=== PATIENT | male | born 1955 | race African-American/Black ===

== ENCOUNTER 2021-09-20 23:04 | Emergency (ER) | payer SELFPAY ==
[2021-09-21] MEDS ORDERED: METO25TA4 PO (01:30)
[2021-09-21] MEDS ORDERED: AMLO10TA4 PO (01:30)
== END 2021-09-20 23:10 | disposition left against medical advice (07) ==
LOC: ER 23:04
DX: Z02.79 Encounter for issue of other medical certificate (principal); Z53.21 Procedure and treatment not carried out due to patient leaving prior to being seen by health care provider

== ENCOUNTER 2021-09-21 00:59 | Emergency (ER) | payer SELFPAY ==
[~2021-09-21] VITALS: Ht 172.7 cm; Wt 70.0 kg
[2021-09-21 01:08] VITALS: BP 192/103
[2021-09-21] MEDS ORDERED: AMLO10TA4 PO (01:30)
[2021-09-21] MEDS ORDERED: METO25TA4 PO (01:30)
--- NOTE | 2021-09-21 01:30 | PHYS DOC ---
General Adult EDM: Chief Complaint: MEDICATION REFILL HPI: HPI: Patient is a 66 year old male presents requesting medication refill-- norvasc and metoprolol. Patient states has been out of his medication for the last several months. Patient states he has been in [facility] for the last 2 months. He is originally from [place]. He states he is in town for rehab. Patient states he does all types of drugs. Review of Systems: Review of Systems: Constitutional: Denies fever or chills. [] Eyes: Denies change in visual acuity. [] HENT: Denies nasal congestion or sore throat. [] Respiratory: Denies cough or shortness of breath. [] Cardiovascular: Denies chest pain or edema. [] GI: Denies abdominal pain, nausea, vomiting, bloody stools or diarrhea. [] : Denies dysuria. [] Musculoskeletal: Denies back pain or joint pain. [] Integument: Denies rash. [] Neurologic: Denies headache, focal weakness or sensory changes. [] Endocrine: Denies polyuria or polydipsia. [] Lymphatic: Denies swollen glands. [] Psychiatric: Denies depression or anxiety. [] Heart Score: C/O Chest Pain: N/A Risk Factors: Risk Factors: DM, Current or recent (<one month) smoker, HTN, HLP, family history of CAD, obesity. Risk Scores: Score 0 - 3: 2.5% MACE over next 6 weeks - Discharge Home Score 4 - 6: 20.3% MACE over next 6 weeks - Admit for Clinical Observation Score 7 - 10: 72.7% MACE over next 6 weeks - Early Invasive Strategies Physical Exam: PE: Constitutional: Well developed, well nourished, no acute distress, non-toxic appearance. [] HENT: Normocephalic, atraumatic, bilateral external ears normal, oropharynx moist, no oral exudates, nose normal. [] Eyes: PERRLA, EOMI, conjunctiva normal, no discharge. [] Neck: Normal range of motion, no tenderness, supple, no stridor. [] Cardiovascular:Heart rate regular rhythm, no murmur [] Lungs & Thorax: Bilateral breath sounds clear to auscultation [] Abdomen: Bowel sounds normal, soft, no tenderness, no masses, no pulsatile masses. [] Skin: Warm, dry, no erythema, no rash. [] Back: No tenderness, no CVA tenderness. [] Extremities: No tenderness, no cyanosis, no clubbing, ROM intact, no edema. [] Neurologic: Alert and oriented X 3, normal motor function, normal sensory function, no focal deficits noted. [] Psychologic: Affect normal, judgement normal, mood normal. [] EKG: EKG: [] Radiology/Procedures: Radiology/Procedures: [] Course & Med Decision Making: Course & Med Decision Making Pertinent Labs and Imaging studies reviewed. (See chart for details) [] Patient noted to have heart rate of 110's beats per minute. Patient states he normally has a high heart rate. Patient medications refilled as requested. Faraz Disclaimer: Faraz Disclaimer: This electronic medical record was generated, in whole or in part, using a voice recognition dictation system. Departure Departure Impression: Primary Impression: Medication refill Disposition: HOME / SELF CARE / HOMELESS Condition: STABLE Referrals: UNKNOWN PCP NAME (PCP) Patient Instructions: Hypertension, Substance Abuse-Brief Scripts Amlodipine Besylate (NORVASC) 10 Mg Tablet 10 MG PO DAILY for 30 Days, #30 TAB Prov: CARLOS FERREIRA DO 09/21/21 Metoprolol Tartrate (METOPROLOL TARTRATE) 25 Mg Tablet 1 TAB PO BID, #60 TAB 5 Refills Prov: CARLOS FERREIRA DO 09/21/21 CARLOS FERREIRA DO Sep 21, 2021 01:30
== END 2021-09-21 01:40 | disposition home or self-care (01) ==
LOC: ER 00:59
DX: Z76.0 Encounter for issue of repeat prescription (principal)
CPT/HCPCS: 99284